=== PATIENT | female | born 2000 | race African-American/Black ===

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

== ENCOUNTER 2019-01-27 09:20 | Emergency (ER) | payer OTHER ==
[~2019-01-27] VITALS: Ht 152.4 cm; Wt 103.0 kg
== END 2019-01-27 14:04 | disposition home or self-care (01) ==
LOC: ER 09:20
DX: B34.9 Viral infection, unspecified (principal)

== ENCOUNTER 2019-02-11 10:17 | Emergency (ER) | payer OTHER ==
[~2019-02-11] VITALS: Ht 152.4 cm; Wt 103.0 kg
== END 2019-02-11 14:14 | disposition home or self-care (01) ==
LOC: ER 10:17
DX: K52.9 Noninfective gastroenteritis and colitis, unspecified (principal)

== ENCOUNTER 2019-03-06 12:59 | Emergency (ER) | payer OTHER ==
[~2019-03-06] VITALS: Ht 160 cm; Wt 107.0 kg
== END 2019-03-06 21:44 | disposition home or self-care (01) ==
LOC: ER 12:59
DX: K52.9 Noninfective gastroenteritis and colitis, unspecified (principal)

== ENCOUNTER 2019-07-08 21:10 | Emergency (ER) | payer OTHER ==
[~2019-07-08] VITALS: Ht 157.5 cm; Wt 108.4 kg
[2019-07-09] MEDS ORDERED: LEVSIN/SL0.125 MG SL (05:18)
== END 2019-07-09 05:44 ==
LOC: ER 21:10
DX: R10.2 Pelvic and perineal pain (principal); R16.0 Hepatomegaly, not elsewhere classified

== ENCOUNTER 2019-10-01 19:47 | Emergency (ER) | payer OTHER ==
[~2019-10-01] VITALS: Ht 160 cm; Wt 106.6 kg
[~2019-10-01 19:47] MED LIST changes: +LEVSIN/SL0.125 MG SL
[2019-10-01] MEDS ORDERED: TOPROL XL50 M1 (20:07)
[2019-10-01] MEDS ORDERED: ZESTRIL20 MG (20:07)
[2019-10-01] MEDS ORDERED: ANTIVERT (20:15)
[2019-10-01] MEDS ORDERED: DRAMAMINE LESS25 MG (20:16)
[2019-10-02] MEDS ORDERED: ZITHROMAX500 MG PO (02:21)
[2019-10-02] MEDS ORDERED: DOLOGESIC 500-1 EACH PO (02:21)
== END 2019-10-02 02:29 ==
LOC: ER 19:47
DX: R51 Headache (principal); J32.8 Other chronic sinusitis

== ENCOUNTER 2019-12-04 21:20 | Emergency (ER) | payer OTHER ==
[~2019-12-04] VITALS: Ht 160 cm; Wt 108.9 kg
[~2019-12-04 21:20] MED LIST changes: +ANTIVERT; +DOLOGESIC 500-1 EACH PO; +DRAMAMINE LESS25 MG; +TOPROL XL50 M1; +ZESTRIL20 MG; +ZITHROMAX500 MG PO
[2019-12-04] MEDS ORDERED: GENVOYA TABLET1 EACH PO (21:35)
[2019-12-04] MEDS ORDERED: BUTALB-ACETAMI1 EAC2 PO (23:16)
== END 2019-12-04 23:23 | disposition home or self-care (01) ==
LOC: ER 21:20
DX: R51 Headache (principal); I10 Essential (primary) hypertension

== ENCOUNTER 2019-12-10 23:53 | Emergency (ER) | payer OTHER ==
[~2019-12-10] VITALS: Ht 160 cm; Wt 109.8 kg
[~2019-12-10 23:53] MED LIST changes: +BUTALB-ACETAMI1 EAC2 PO; +GENVOYA TABLET1 EACH PO
== END 2019-12-11 | disposition left against medical advice (07) ==
LOC: ER 23:53
DX: Z53.20 Procedure and treatment not carried out because of patient's decision for unspecified reasons (principal)

== ENCOUNTER 2020-12-22 10:05 | Emergency (ER) | payer OTHER ==
[~2020-12-22] VITALS: Ht 160 cm; Wt 104.3 kg
[2020-12-22] MEDS ORDERED: ZESTRIL40 M1 (10:37)
[2020-12-22] MEDS ORDERED: ZITHROMAX500 MG PO (14:42)
[2020-12-22] MEDS ORDERED: NORFLEX100MG PO (14:42)
== END 2020-12-22 14:55 | disposition home or self-care (01) ==
LOC: ER 10:05
DX: B34.9 Viral infection, unspecified (principal); Z11.52 Encounter for screening for COVID-19

== ENCOUNTER 2022-01-06 14:46 | Emergency (ER) | payer OTHER ==
[~2022-01-06] VITALS: Ht 162.6 cm; Wt 105.7 kg
[~2022-01-06 14:46] MED LIST changes: +NORFLEX100MG PO; +ZESTRIL40 M1
[2022-01-06] MEDS ORDERED: NORFLEX100MG PO (18:32)
== END 2022-01-06 18:55 | disposition home or self-care (01) ==
LOC: ER 14:46
DX: M25.521 Pain in right elbow (principal)

== ENCOUNTER 2022-04-13 14:47 | Emergency (ER) | payer OTHER ==
[~2022-04-13] VITALS: Ht 162.6 cm; Wt 103.4 kg
[2022-04-13] MEDS ORDERED: NORFLEX100MG PO (17:10)
== END 2022-04-13 19:15 | disposition home or self-care (01) ==
LOC: ER 14:47
DX: M54.2 Cervicalgia (principal)

== ENCOUNTER 2022-10-19 12:38 | Inpatient (IN) | payer OTHER ==
[~2022-10-19] VITALS: Ht 162.6 cm; Wt 216.8 kg
--- NOTE | 2022-10-19 13:33 | NUR ---
PACIENTE VERBALIZA DOLOR DE RENUKA VOMITOS X4 Y DIARREAS X3.
--- NOTE | 2022-10-19 14:19 | NUR ---
SE RECIBE PTE FEMENAINA DE 22 YRS ALERTA CONCIENTE Y TRANQUILA. ES EVALUADA POR EL SELENA QUARLES QUIEN ORDENA TRATAMIENTO LA CUAL SE EJECUTA POR RN SE MANTIENE BAJO OBSERVAICON.
== END 2022-10-23 22:50 | disposition home or self-care (01) | DRG 683 ==
LOC: ER 12:38 → MEDJ 22:00
PROVIDERS: ADMIT Internal Medicine; ATTEND Internal Medicine
PROC: BW21ZZZ Computerized Tomography (CT Scan) of Abdomen and Pelvis (ICD-10-PCS; principal; 2022-10-19)
DX: N18.4 Chronic kidney disease, stage 4 (severe) (principal); B20 Human immunodeficiency virus [HIV] disease; E11.22 Type 2 diabetes mellitus with diabetic chronic kidney disease; K59.1 Functional diarrhea; E87.5 Hyperkalemia; Z79.4 Long term (current) use of insulin

== ENCOUNTER 2022-12-04 01:16 | Emergency (ER) | payer OTHER ==
[~2022-12-04] VITALS: Ht 162.6 cm; Wt 96.6 kg
[2022-12-04] MEDS ORDERED: CEPHALEXIN500 MG PO (03:52)
== END 2022-12-04 04:14 ==
LOC: ER 01:16
DX: S01.02XA Laceration with foreign body of scalp, initial encounter (principal); W01.0XXA Fall on same level from slipping, tripping and stumbling without subsequent striking against object, initial encounter; Y93.9 Activity, unspecified; Y92.013 Bedroom of single-family (private) house as the place of occurrence of the external cause; B20 Human immunodeficiency virus [HIV] disease; N28.9 Disorder of kidney and ureter, unspecified

== ENCOUNTER 2022-12-14 12:19 | Emergency (ER) | payer OTHER ==
[~2022-12-14] VITALS: Ht 162.6 cm; Wt 95.3 kg
== END 2022-12-14 14:06 | disposition home or self-care (01) ==
LOC: ER 12:19
DX: Z48.02 Encounter for removal of sutures (principal)

== ENCOUNTER 2023-09-27 11:29 | Emergency (ER) | payer OTHER ==
[~2023-09-27] VITALS: Ht 160 cm; Wt 89.4 kg
[~2023-09-27 11:29] MED LIST changes: +ALBUTEROL2.5 MG/3 M IH; +DOLOGESIC-DF 51 EACH PO; +PHENAGIL TABLE1 EACH PO; +ZYNCOF 20-400120 ML PO
== END 2023-09-27 18:08 | disposition home or self-care (01) ==
LOC: ER 11:29
DX: R53.81 Other malaise (principal); J06.9 Acute upper respiratory infection, unspecified; Z20.822 Contact with and (suspected) exposure to COVID-19; I10 Essential (primary) hypertension

== ENCOUNTER 2024-07-30 20:17 | Inpatient (IN) | payer OTHER ==
[~2024-07-30] VITALS: Ht 162.6 cm; Wt 83.9 kg
[2024-07-30 23:06] LABS: HEMOGLOBIN 10.7 g/dL (12.0-15.00); MEAN CELL VOLUME 88.5 fL (80.00-100.00); MEAN CORPUSCULAR HEMOGLOBIN 28.6 pg (27.00-32.0); MEAN CORPUSCULAR HGB CONC 32.4 g/dl (32.0-36.0); PLATELET COUNT 140 K/uL (150-450); RED BLOOD COUNT 3.73 M/uL (4.00-6.00); RED CELL DISTRIBUTION WIDTH 14.2 % (11.5-14.5)
[2024-07-30 23:25] LABS: INR 1.06; PARTIAL THROMBOPLASTIN TIME 26.8 SECONDS (22.0-34.0); PROTHROMBIN TIME 11.5 SECONDS (9.0-11.5)
[2024-07-31 00:05] LABS: ALBUMIN 3.9 gm/dL (3.4-5.0); BILIRUBIN TOTAL 0.28 mg/dL (0.3-1.2); CALCIUM 8.7 mg/dL (8.5-10.1); GFR 4.74; GLOBULINA 4.6 G/DL (2.4-3.5); POTASSIUM 4.03 mEq/L (3.5-5.1); TOTAL PROTEIN 8.5 gm/dL (6.4-8.2)
[2024-07-31 02:03] LABS: URINE APPEARANCE Clear; URINE BILIRRUBIN Negative (NEGATIVE); URINE BLOOD Trace; URINE COLOR Yellow; URINE GLUCOSE Negative (NEGATIVE); URINE KETONE Negative (NEGATIVE); URINE LEUKOCYTE Moderate; URINE NITRATE Negative; URINE UROBILINOGEN 0.2 E.U./dl
[2024-07-31 02:08] LABS: URINE EPITHELIAL CELLS 64.9 uL (0.0-38.8); URINE RBC 19.3 uL (0.0-20.8); URINE WBC 99.5 uL (0.0-23.2)
[2024-07-31 02:19] LABS: URINE CAST 0.15 uL (0.0-1.40); URINE PROTEIN 100 (NEGATIVE)
[2024-07-31] MEDS ORDERED: NITROGLYCERIN IN 5 % DEXTROSE 50 MG/250 ML KIT IV SCH (04:45)
[2024-07-31] MEDS ORDERED: TICAGRELOR 90 MG TABLET PO STA (06:23)
[2024-07-31] MEDS ORDERED: ASPIRIN 81 MG TABLET.EC PO STA (06:23)
[2024-07-31] MEDS ORDERED: ENOXAPARIN SODIUM 80 MG/0.8 ML SYRINGE SUBCUTANEO SCH (09:00)
[2024-07-31] MEDS ORDERED: ASPIRIN 325 MG TABLET PO SCH (09:00)
[2024-07-31] MEDS ORDERED: LOSARTAN POTASSIUM 50 MG TABLET PO SCH (09:00)
[2024-07-31] MEDS ORDERED: METOPROLOL SUCCINATE 25 MG TAB.SR.24H PO SCH (09:00)
[2024-07-31] MEDS ORDERED: ATORVASTATIN CALCIUM 40 MG TABLET PO SCH (09:00)
[2024-07-31] MEDS ORDERED: NITROGLYCERIN IN 5 % DEXTROSE 250 ML IV SCH ×2 (09:30→19:00)
[2024-07-31 09:58] VITALS: BP 117/77
[2024-07-31] MEDS ORDERED: DIPHENHYDRAMINE HCL 50 MG/ML VIAL 1ML IV ONE (14:45)
[2024-07-31] MEDS ORDERED: METHYLPREDNISOLONE SOD SUCC 40 MG VIAL IV ONE (14:45)
[2024-07-31 16:32] VITALS: BP 111/82
[2024-08-01 01:43] VITALS: BP 112/71; O2SAT 98
[2024-08-01 10:51] VITALS: BP 103/73; O2SAT 99
[2024-08-01 14:49] LABS: HEMATOCRIT 34.7 % (36.0-45.00); HEMOGLOBIN 11.3 g/dL (12.0-15.00); MEAN CELL VOLUME 89.4 fL (80.00-100.00); MEAN CORPUSCULAR HEMOGLOBIN 29.2 pg (27.00-32.0); MEAN CORPUSCULAR HGB CONC 32.7 g/dl (32.0-36.0); PLATELET COUNT 175 K/uL (150-450); RED BLOOD COUNT 3.88 M/uL (4.00-6.00); RED CELL DISTRIBUTION WIDTH 14.4 % (11.5-14.5)
[2024-08-01 15:34] LABS: ALBUMIN 4.1 gm/dL (3.4-5.0); BILIRUBIN TOTAL 0.35 mg/dL (0.3-1.2); CALCIUM 8.6 mg/dL (8.5-10.1); GFR 6.69; GLOBULINA 4.6 G/DL (2.4-3.5); POTASSIUM 4.75 mEq/L (3.5-5.1); TOTAL PROTEIN 8.7 gm/dL (6.4-8.2)
[2024-08-01 15:45] LABS: CREATININE SERUM 7.42 mg/dL (0.55-1.02)
[2024-08-01 16:49] VITALS: BP 117/65
[2024-08-02] VITALS: BP 110/71
[2024-08-02 08:35] VITALS: BP 107/69; O2SAT 100
[2024-08-02] MEDS ORDERED: FF) DOLUTEGRAVIR/RILPIVIRINE TABLET PO SCH (09:00)
== END 2024-08-02 13:09 | disposition home or self-care (01) | DRG 314 ==
LOC: ER 20:19 → MEDI 07-31 08:40 → SEC-K 07-31 08:40 → MEDI 07-31 10:07
PROVIDERS: General Practice; ADMIT Internal Medicine; ATTEND Internal Medicine
PROC: BB24YZZ Computerized Tomography (CT Scan) of Bilateral Lungs using Other Contrast (ICD-10-PCS; principal; 2024-07-31)
PROC: B246ZZZ Ultrasonography of Right and Left Heart (ICD-10-PCS; 2024-07-31)
PROC: 4A12X4Z Monitoring of Cardiac Electrical Activity, External Approach (ICD-10-PCS; 2024-07-31)
PROC: 5A1D70Z Performance of Urinary Filtration, Intermittent, Less than 6 Hours Per Day (ICD-10-PCS; 2024-07-31)
DX: I5A Non-ischemic myocardial injury (non-traumatic) (principal); N18.6 End stage renal disease; B20 Human immunodeficiency virus [HIV] disease; I12.0 Hypertensive chronic kidney disease with stage 5 chronic kidney disease or end stage renal disease; R55 Syncope and collapse; E78.5 Hyperlipidemia, unspecified; Z99.2 Dependence on renal dialysis; R79.89 Other specified abnormal findings of blood chemistry

== ENCOUNTER → 2024-12-12 | Emergency (ER) | payer OTHER ==
[~2024-12-12] VITALS: Ht 162.6 cm; Wt 86.2 kg
[~2024-12-12] MED LIST changes: +CALCITRIOL0.25 MCG PO; +TOPROL XL100 M1 PO; +ZESTRIL20 MG PO
== END | disposition left against medical advice (07) ==
LOC: ER 21:28
DX: Z53.21 Procedure and treatment not carried out due to patient leaving prior to being seen by health care provider (principal)

== ENCOUNTER 2025-02-16 07:39 | Outpatient (CLI) | payer OTHER | END 2025-02-16 07:40 | disposition home or self-care (01) | LOC: NUCLEAR 07:39 | PROVIDERS: ATTEND Internal Medicine | DX: R07.9 Chest pain, unspecified (principal) ==

== ENCOUNTER 2025-06-29 19:25 | Emergency (ER) | payer OTHER ==
[~2025-06-29] VITALS: Ht 162.6 cm; Wt 86.6 kg
[2025-06-29] MEDS ORDERED: LOKELMA5 GM PO (19:44)
[2025-06-29] MEDS ORDERED: [UNRECOGNIZED DRUG - OTHER] (19:44)
[2025-06-29] MEDS ORDERED: SENSIPAR30 MG (19:44)
== END 2025-06-29 20:51 | disposition home or self-care (01) ==
LOC: ER 19:25
DX: R00.2 Palpitations (principal); R42 Dizziness and giddiness; N19 Unspecified kidney failure